=== PATIENT | male | born 1980 | race Hispanic/Latino ===

== ENCOUNTER 2016-11-28 11:35 | Emergency (ER) | payer BC ==
[2016-11-28 12:00] VITALS: BMI 27.1
[2016-11-28] MEDS ORDERED: Sodium Chloride 0.9% 1,000 ML IV STA (12:00)
[2016-11-28 12:05] VITALS: RESP 18; TEMP 98.2
--- NOTE | 2016-11-28 12:06 | ED PDOC ---
Arrival/HPI - General Time Seen by Provider: 11/28/16 11:44 Historian: Patient - History of Present Illness Narrative History of Present Illness (Text): 11/28/16 12:07 A 36 year old male, whose past medical history includes renal stone, presents to the emergency department complaining of worsening right flank pain for almost 2 weeks. Patient notes taking Percocet given by Dr. Anne on 11/16/16. Patient reports diarrhea and occasional dysuria, hematuria but denies nausea, fever or any other complaints at this time. Patient reports smoking but denies alcohol and drug use. Urologist: Dr. Becerra Time/Duration: > week Symptom Onset: Sudden Symptom Course: Unchanged Activities at Onset: Rest Context: Home Associated Symptoms (Text): diarrhea, dysuria and hematuria 11/28/16 14:07 Approximately 2 week history of right-sided flank and right groin pain similar to previous kidney stones. Seen by the PMD and ran out of Percocet. Worse overnight.. No nausea vomiting or diarrhea. No genitourinary symptoms. No fever or chills. Past Medical History - Provider Review Nursing Documentation Reviewed: Yes - Tetanus Immunization Tetanus Immunization: Unknown - Surgical History Hx Inguinal Hernia Repair: Yes Family/Social History - Physician Review Nursing Documentation Reviewed: Yes Family/Social History: No Known Family HX Smoking Status: Light Smoker < 10 Cigarettes Daily Hx Alcohol Use: No Hx Substance Use: No Allergies/Home Meds Allergies/Adverse Reactions: Allergies No Known Allergies Allergy (Verified 03/13/14 19:54) Review of Systems - Physician Review All systems were reviewed & negative as marked: Yes - Review of Systems Constitutional: absent: Fevers Respiratory: Normal Cardiovascular: Normal Gastrointestinal: Diarrhea. absent: Nausea Genitourinary Male: Dysuria, Hematuria. absent: Frequency Musculoskeletal: Other (R sided flank pain) Physical Exam Vital Signs Reviewed: Yes Vital Signs Temp Pulse Resp BP Pulse Ox 11/28/16 11:36 98.2 F 86 18 132/81 98 Temperature: Afebrile Blood Pressure: Normal Pulse: Regular Respiratory Rate: Normal Appearance: Positive for: Well-Appearing, Non-Toxic, Uncomfortable Pain Distress: None Mental Status: Positive for: Alert and Oriented X 3 - Systems Exam Head: Present: Atraumatic, Normocephalic Pupils: Present: PERRL Extroacular Muscles: Present: EOMI Conjunctiva: Present: Normal Mouth: Present: Moist Mucous Membranes Neck: Present: Normal Range of Motion Respiratory/Chest: Present: Clear to Auscultation, Good Air Exchange. No: Respiratory Distress, Accessory Muscle Use Cardiovascular: Present: Regular Rate and Rhythm, Normal S1, S2. No: Murmurs Abdomen: Present: Normal Bowel Sounds. No: Tenderness, Distention, Peritoneal Signs Back: Present: CVA Tenderness (mild) Upper Extremity: Present: Normal Inspection. No: Cyanosis, Edema Lower Extremity: Present: Normal Inspection. No: Edema Neurological: Present: GCS=15, CN II-XII Intact, Speech Normal Skin: Present: Warm, Dry, Normal Color. No: Rashes Psychiatric: Present: Alert, Oriented x 3, Normal Insight, Normal Concentration , Other (uncomfortable) Medical Decision Making ED Course and Treatment: 11/28/16 12:00 Impression: A 36 year old male with worsening R flank pain. Differential Diagnosis included but are not limited to: Plan: -- CT abd/pelvis -- labs -- Urinalysis -- IV fluids, Toradol -- Reassess and disposition Prior Visits: Notes and results from previous visits were reviewed. Patient last reported to the emergency department on 03/13/14 for evaluation of intermittent flank pain with hematuria. Patient was discharged. Progress Notes: CT abd/pelvis: Creator : Keri Chisholm MD 11/28/2016 13:34 FINDINGS: There is limited evaluation of the solid organs without the administration of IV contrast. LOWER THORAX: Punctate right middle and lower lobe calcified granulomas. Mild bibasilar atelectasis. No visible pleural effusion or pneumothorax. LIVER: Unremarkable unenhanced appearance. GALLBLADDER AND BILE DUCTS: Unremarkable unenhanced appearance. PANCREAS: Unremarkable unenhanced appearance. SPLEEN: Unremarkable unenhanced appearance. ADRENALS: Unremarkable unenhanced appearance. KIDNEYS AND URETERS: Nonobstructing bilateral renal calculi. No hydronephrosis or obstructing renal calculus. BLADDER: Under distention of the urinary bladder appears grossly unremarkable. REPRODUCTIVE: The prostate gland measures approximately 3.8 x 4.2 cm. APPENDIX: The appendix appears within normal limits of caliber. No secondary signs of acute appendicitis. BOWEL: The stomach is nondistended. Lack of oral contrast limits evaluation for bowel pathology. The bowel loops appear within normal limits of caliber without evidence of intestinal obstruction. PERITONEUM: No significant free fluid. No definite free air. LYMPH NODES: No bulky lymphadenopathy identified. VASCULATURE: No aortic aneurysm. BONES: No acute osseous abnormality is detected. OTHER FINDINGS: None. IMPRESSION: Nonobstructing bilateral renal calculi. No hydronephrosis or obstructing renal calculus. 11/28/16 14:00 On re-evaluation, patient feels better and is in no acute distress. I have discussed the results and plan with the patient, who expresses understanding. Patient in agreement with plan to be discharged home. Patient is stable for discharge. Patient was instructed to follow up with physician or return if symptoms worsen or new concerning symptoms arise. - Lab Interpretations Lab Results: 11/28/16 12:20 11/28/16 12:20 Lab Results 11/28/16 12:20: Sodium 139, Potassium 3.9, Chloride 105, Carbon Dioxide 25, Anion Gap 13, BUN 12, Creatinine 0.9, Est GFR ( Amer) > 60, Est GFR (Non- Af Amer) > 60, Random Glucose 91, Calcium 9.5, Total Bilirubin 0.7, AST 25, ALT 32, Alkaline Phosphatase 87, Total Protein 7.9, Albumin 4.5, Globulin 3.4, Albumin/Globulin Ratio 1.3, Lipase 36 11/28/16 12:20: Urine Color Yellow, Urine Appearance Clear, Urine pH 6.0, Ur Specific Carlton 1.025, Urine Protein Trace H, Urine Glucose (UA) Negative, Urine Ketones Negative, Urine Blood Negative, Urine Nitrate Negative, Urine Bilirubin Small H, Urine Urobilinogen 0.2, Ur Leukocyte Esterase Negative, Urine RBC 0 - 2, Urine WBC 0 - 2, Ur Epithelial Cells 0 - 2, Urine Bacteria Few , Urine Other Mucus 11/28/16 12:20: WBC 13.1 H, RBC 4.39, Hgb 13.4 L, Hct 38.8 L, MCV 88.4, MCH 30.5 , MCHC 34.5, RDW 13.6, Plt Count 351, MPV 9.3, Gran % 73.0 H, Lymph % (Auto) 20.4 L, [place] % (Auto) 5.5, Eos % (Auto) 0.7 L, Baso % (Auto) 0.4, Gran # 9.59 H , Lymph # 2.7, P[place] # 0.7 H, Eos # 0.1, Baso # 0.05 I have reviewed the lab results: Yes - RAD Interpretation Radiology Orders: 11/28/16 12:00 ABD & PELVIS W/O PO OR IV CONT [CT] Stat CT scan of the abdomen and pelvis as read by the radiologist shows no acute findings. Communications Programmer: Radiologist - Medication Orders Current Medication Orders: Discontinued Medications Sodium Chloride (Sodium Chloride 0.9%) 1,000 mls @ 1,000 mls/hr IV .Q1H STA Stop: 11/28/16 12:59 Last Admin: 11/28/16 12:20 Dose: 1,000 mls/hr Ketorolac Tromethamine (Toradol) 30 mg IVP STAT STA Stop: 11/28/16 12:01 Last Admin: 11/28/16 12:20 Dose: 30 mg Morphine Sulfate (Morphine) 4 mg IVP STAT STA Stop: 11/28/16 13:07 Last Admin: 11/28/16 13:45 Dose: 4 mg Ondansetron HCl (Zofran Inj) 4 mg IVP ONCE ONE Stop: 11/28/16 13:07 Last Admin: 11/28/16 14:04 Dose: 4 mg - Scribe Statement The provider has reviewed the documentation as recorded by the Chelsey Moser Provider Scribe Attestation: All medical record entries made by the Scribann-marie were at my direction and personally dictated by me. I have reviewed the chart and agree that the record accurately reflects my personal performance of the history, physical exam, medical decision making, and the department course for this patient. I have also personally directed, reviewed, and agree with the discharge instructions and disposition. Disposition/Present on Arrival - Present on Arrival Any Indicators Present on Arrival: No History of DVT/PE: No History of Uncontrolled Diabetes: No Urinary Catheter: No History Surgical Site Infection Following: None - Disposition Have Diagnosis and Disposition been Completed?: Yes Diagnosis: Right flank pain, Nephrolithiasis Disposition: HOME/ ROUTINE Disposition Time: 14:09 Patient Plan: Discharge Patient Problems: Current Active Problems Problem Status Onset Nephrolithiasis Acute Right flank pain Acute Condition: IMPROVED Discharge Instructions (ExitCare): Kidney Stones (ED) Prescriptions: oxyCODONE/Acetaminophen [Percocet 5/325 mg Tab] 1 ea PO Q6 #15 tab Referrals: Sal Anne MD [Primary Care Provider] - Follow up with primary Eric Becerra MD [Staff Provider] - Follow up with primary
[2016-11-28 12:33] LABS: ADD MANUAL DIFF? NO
[2016-11-28 12:36] LABS: BASO # 0.05 K/mm3 (0.0-2.0); BASO % 0.4 % (0.0-3.0); EOS # 0.1 (0.0-0.7); EOS % 0.7 % (1.5-5.0); GRAN # 9.59 (1.4-6.5); HEMATOCRIT 38.8 % (42.0-52.0); LYMPH # 2.7 (1.2-3.4); LYMPH % 20.4 % (22.0-35.0); MEAN CELL VOLUME 88.4 fL (80.0-105.0); MEAN CORPUSCULAR HEMOGLOBIN 30.5 pg (25.0-35.0); MEAN CORPUSCULAR HGB CONC 34.5 g/dl (31.0-37.0); MEAN PLATELET VOLUME 9.3 fl (7.0-11.0); MONO # 0.7 (0.1-0.6); MONO % 5.5 % (1.0-6.0); PLATELET COUNT 351 10^3/uL (120.0-450.0); RED CELL DISTRIBUTION WIDTH 13.6 % (11.5-14.5); URINE BILIRUBIN SMALL (NEGATIVE); URINE BLOOD NEGATIVE (NEGATIVE); URINE GLUCOSE (UA) NEGATIVE (NEGATIVE); URINE KETONE NEGATIVE (NEGATIVE); URINE LEUKOCYTE ESTERASE NEGATIVE Leu/uL (NEGATIVE); URINE PROTEIN TRACE mg/dL (<30 mg/dL); URINE UROBILINOGEN 0.2 E.U./dL (<1 E.U./dL); WHITE BLOOD COUNT 13.1 10^3/ul (4.5-11.0)
[2016-11-28 12:37] LABS: URINE APPEARANCE CLEAR (CLEAR); URINE COLOR YELLOW (YELLOW)
[2016-11-28 12:45] LABS: ALB/GLOB RATIO 1.3 (1.1-1.8); ALKALINE PHOSPHATASE 87 U/L (38-133); ALT/SGPT 32 U/L (7-56); AST/SGOT 25 U/L (15-59); BILIRUBIN,TOTAL 0.7 mg/dL (0.2-1.3); BLOOD UREA NITROGEN 12 mg/dL (7-21); CALCIUM 9.5 mg/dL (8.4-10.5); CARBON DIOXIDE 25 mmol/L (21-33); CHLORIDE 105 mmol/L (98-107); GFR AFRICAN-AMERICAN > 60; GLUCOSE,RANDOM 91 mg/dL (70-110); LIPASE 36 U/L (23-300); POTASSIUM 3.9 mmol/L (3.6-5.0); SODIUM 139 mmol/L (132-148); TOTAL PROTEIN 7.9 g/dL (5.8-8.3)
[2016-11-28 12:58] LABS: URINE BACTERIA FEW (NEG); URINE EPITHELIAL CELLS 0 - 2 /hpf (0-5); URINE RBC 0 - 2 /hpf (0-2); URINE WBC 0 - 2 /hpf (0-6)
[2016-11-28] MEDS ORDERED: Morphine 4 mg/ml ISec IVP STA (13:06)
--- NOTE | 2016-11-28 13:33 | CT ---
PROCEDURE: CT Abdomen and Pelvis without Oral or IV contrast. HISTORY: right stone run COMPARISON: CT abdomen and pelvis without oral or IV contrast performed 03/13/14 TECHNIQUE: Contiguous axial images of the abdomen and pelvis. No oral or IV contrast administered. Coronal and Sagittal reformats generated and reviewed. Radiation dose: Total exam DLP = 890.97 mGy-cm. This CT exam was performed using one or more of the following dose reduction techniques: Automated exposure control, adjustment of the mA and/or kV according to patient size, and/or use of iterative reconstruction technique. FINDINGS: There is limited evaluation of the solid organs without the administration of IV contrast. LOWER THORAX: Punctate right middle and lower lobe calcified granulomas. Mild bibasilar atelectasis. No visible pleural effusion or pneumothorax. LIVER: Unremarkable unenhanced appearance. GALLBLADDER AND BILE DUCTS: Unremarkable unenhanced appearance. PANCREAS: Unremarkable unenhanced appearance. SPLEEN: Unremarkable unenhanced appearance. ADRENALS: Unremarkable unenhanced appearance. KIDNEYS AND URETERS: Nonobstructing bilateral renal calculi. No hydronephrosis or obstructing renal calculus. BLADDER: Under distention of the urinary bladder appears grossly unremarkable. REPRODUCTIVE: The prostate gland measures approximately 3.8 x 4.2 cm. APPENDIX: The appendix appears within normal limits of caliber. No secondary signs of acute appendicitis. BOWEL: The stomach is nondistended. Lack of oral contrast limits evaluation for bowel pathology. The bowel loops appear within normal limits of caliber without evidence of intestinal obstruction. PERITONEUM: No significant free fluid. No definite free air. LYMPH NODES: No bulky lymphadenopathy identified. VASCULATURE: No aortic aneurysm. BONES: No acute osseous abnormality is detected. OTHER FINDINGS: None. IMPRESSION: Nonobstructing bilateral renal calculi. No hydronephrosis or obstructing renal calculus.
[2016-11-28 18:11] VITALS: BP 129/78; PULSE 79; O2SAT 99
== END 2016-11-28 14:25 | disposition home or self-care (01) ==
LOC: ED 11:35
DX: N20.0 Calculus of kidney (principal); R10.9 Unspecified abdominal pain
CPT/HCPCS: 74176; 80053; 81001; 83690; 85025; 87086; 96374; 96375; 99283; J1885; J2270; J2405; J7040